=== PATIENT | female | born 1940 | race Caucasian/White ===

== ENCOUNTER → 2024-04-03 11:33 | Outpatient (REF) | payer MEDICARE, OTHER, SELFPAY | LOC: HWWDC 11:33 | PROVIDERS: ATTENDING PHYSICIAN Nurse Practitioner Adult Health | DX: Z12.31 Encounter for screening mammogram for malignant neoplasm of breast (principal) | CPT/HCPCS: 77063; 77067 ==

== ENCOUNTER → 2024-12-07 14:32 | Outpatient (REF) | payer MEDICARE, OTHER, SELFPAY | LOC: HWRAD 14:32 | PROVIDERS: ATTENDING PHYSICIAN Physician Assistant; FAMILY PHYSICIAN Nurse Practitioner Adult Health | DX: M53.3 Sacrococcygeal disorders, not elsewhere classified (principal); W19.XXXA Unspecified fall, initial encounter | CPT/HCPCS: 72220 ==

== ENCOUNTER → 2025-05-14 14:09 | Outpatient (REF) | payer MEDICARE, OTHER, SELFPAY | LOC: HWRAD 14:09 | PROVIDERS: ATTENDING PHYSICIAN Nurse Practitioner Adult Health | DX: Z12.31 Encounter for screening mammogram for malignant neoplasm of breast (principal); Z78.0 Asymptomatic menopausal state | CPT/HCPCS: 77063; 77067; 77080 ==

== ENCOUNTER → 2025-06-29 12:29 | Outpatient (REF) | payer MEDICARE, OTHER, SELFPAY | LOC: HWRAD 12:29 | DX: J01.00 Acute maxillary sinusitis, unspecified (principal); R05.3 Chronic cough; R06.2 Wheezing | CPT/HCPCS: 71046 ==